=== PATIENT | male | born 1975 ===

== ENCOUNTER 2021-03-20 14:31 | Emergency (ER) | payer MEDICAID ==
[2021-03-20 15:20] LABS: ANION GAP 11.1 mEq/L (7-13)
[2021-03-20] MEDS ORDERED: GI Cocktail Oral Solution 30 ML PO ONE (15:52)
--- NOTE | 2021-03-20 16:06 | EDM.PDOC ---
ED HPI GENERAL MEDICAL PROBLEM - General Chief Complaint: Chest Pain Stated Complaint: CHEST PAIN Time Seen by Provider: 03/20/21 15:15 Source of Information: Reports: Patient History Limitations: Reports: No Limitations - History of Present Illness INITIAL COMMENTS - FREE TEXT/NARRATIVE: This 45 yo male patient was brought to the ED from [facility] due to lower chest pain and upper abdominal pain. The patient reports he tested positive for COVID on Tuesday. The patient was sent to the hospital for monoclonal antibodies. After his infusion, the patient started to develop increased symptoms. The patient reports he started to have COVID symptoms about 1 week ago and has continued to get worse. The patient reports his symptoms get worse when he lays down, but get better when he sits up or stands up. Onset: Today Duration: Constant Location: Reports: Chest, Abdomen Quality: Reports: Other Severity: Moderate Improves with: Reports: None Worsens with: Reports: None Context: Reports: Other Associated Symptoms: Reports: Chest Pain, Other Chest Pain Score (Numeric/FACES): 5 - Related Data Allergies Allergy/AdvReac Type Severity Reaction Status Date / Time Penicillins Allergy Other Verified 03/20/21 14:41 Home Meds: Home Meds Allopurinol [Zyloprim] 300 mg PO DAILY 03/20/21 [History] Codeine/Promethazine [Phenergan with Codeine] 5 ml PO QID 03/20/21 [History] FLUoxetine [PROzac] 40 mg PO DAILY 03/20/21 [History] hydrOXYzine HCL [hydrOXYzine] 25 mg PO TID PRN 03/20/21 [History] Past Medical History HEENT History: Reports: Allergic Rhinitis Cardiovascular History: Reports: High Cholesterol, Hypertension, Other (See Below) Other Cardiovascular History: bradycardia Respiratory History: Reports: Sleep Apnea Gastrointestinal History: Reports: Hemorrhoids Genitourinary History: Reports: Renal Calculus, Other (See Below) Other Genitourinary History: BULBOUS URETHRAL STRICTURE. ERECTILE DYSFUNCTION OF ORGANIC ORIGIN Musculoskeletal History: Reports: Arthritis, Gout Neurological History: Reports: None Psychiatric History: Reports: Anxiety, Depression Endocrine/Metabolic History: Reports: Obesity/BMI 30+ Hematologic History: Reports: None Immunologic History: Reports: None Oncologic (Cancer) History: Reports: None Dermatologic History: Reports: Cellulitis - Infectious Disease History Infectious Disease History: Reports: Chicken Pox, Novel Coronavirus - Past Surgical History Head Surgeries/Procedures: Reports: None HEENT Surgical History: Reports: None Respiratory Surgical History: Reports: None GI Surgical History: Reports: Hernia Repair/Other Male Surgical History: Reports: Other (See Below) Other Male Surgeries/Procedures: URETHRA SURGERY Endocrine Surgical History: Reports: None Neurological Surgical History: Reports: None Musculoskeletal Surgical History: Reports: None Oncologic Surgical History: Reports: None Dermatological Surgical History: Reports: None Social & Family History - Tobacco Use Tobacco Use Status *Q: Never Tobacco User Second Hand Smoke Exposure: No - Caffeine Use Caffeine Use: Reports: Energy Drinks, Soda Caffeine Use Comment: 1 can daily - Recreational Drug Use Recreational Drug Use: No ED ROS GENERAL - Review of Systems Review Of Systems: Comprehensive ROS is negative, except as noted in HPI. ED EXAM, GENERAL - Physical Exam Exam: See Below Exam Limited By: No Limitations General Appearance: Alert, WD/WN, Moderate Distress, Obese Eye Exam: Bilateral Eye: EOMI, Normal Inspection, PERRL Ears: Normal External Exam, Normal Canal, Hearing Grossly Normal, Normal TMs Nose: Normal Inspection, Normal Mucosa, No Blood Throat/Mouth: Normal Inspection, Normal Lips, Normal Teeth, Normal Gums, Normal Oropharynx, Normal Voice, No Airway Compromise Head: Atraumatic, Normocephalic Neck: Normal Inspection, Supple, Non-Tender, Full Range of Motion Respiratory/Chest: No Respiratory Distress, No Accessory Muscle Use, Decreased Breath Sounds Cardiovascular: Normal Peripheral Pulses, Regular Rate, Rhythm, No Edema, No Gallop, No JVD, No Murmur, No Rub (Male) Exam: Deferred Rectal (Males) Exam: Deferred Extremities: Normal Inspection, Normal Range of Motion, Non-Tender, Normal Capillary Refill, No Pedal Edema Neurological: Alert, Oriented, CN II-XII Intact, Normal Cognition, Normal Gait, Normal Reflexes, No Motor/Sensory Deficits Psychiatric: Normal Affect, Normal Mood Skin Exam: Warm, Dry, Intact, Normal Color, No Rash Lymphatic: No Adenopathy #1 Interpretation EKG Date: 03/20/21 Time: 14:37 Rhythm: NSR Rate (Beats/Min): 86 [place]: Normal P-Wave: Present QRS: Normal ST-T: Normal QT: Normal Comparison: NA - No Prior EKG Course - Vital Signs Last Recorded V/S: Last Vital Signs Temp 101.6 F H 03/20/21 14:41 Pulse 82 03/20/21 14:41 Resp 27 H 03/20/21 14:41 BP 144/72 H 03/20/21 14:41 Pulse Ox 93 L 03/20/21 14:41 - Orders/Labs/Meds Labs: Laboratory Tests 03/20/21 03/20/21 Range/Units 14:47 14:47 WBC 3.7 L (5.0-10.0) 10^3/uL RBC 4.35 L (4.6-6.2) 10^6/uL Hgb 13.1 L (14.0-18.0) g/dL Hct 40.0 (40.0-54.0) % MCV 92.0 (80-100) fL MCH 30.1 (27.0-34.0) pg MCHC 32.8 L (33.0-35.0) g/dL Plt Count 167 (150-450) 10^3/uL Neut % (Auto) 51.8 (42.2-75.2) % Lymph % (Auto) 36.9 (20.5-50.1) % [place] % (Auto) 11.0 H (2-8) % Eos % (Auto) 0.0 L (1.0-3.0) % Baso % (Auto) 0.3 (0.0-1.0) % Sodium 135 L (136-145) mmol/L Potassium 4.1 (3.5-5.1) mmol/L Chloride 101 (98-107) mmol/L Carbon Dioxide 27 (21-32) mmol/L Anion Gap 11.1 (7-13) mEq/L BUN 17 (7-18) mg/dL Creatinine 1.33 H (0.70-1.30) mg/dL Est Cr Clr Drug Dosing 83.26 mL/min Estimated GFR (MDRD) 59 BUN/Creatinine Ratio 12.8 (No establ ref range) Glucose 98 (70-99) mg/dL Calcium 7.9 L (8.5-10.1) mg/dL Total Bilirubin 0.4 (0.2-1.0) mg/dL AST 38 H (15-37) U/L ALT 41 (16-63) U/L Alkaline Phosphatase 43 L (46-116) U/L Troponin I High Sens 11 (<=76) pg/mL Total Protein 6.8 (6.4-8.2) g/dL Albumin 2.9 L (3.4-5.0) g/dL Globulin 3.9 Albumin/Globulin Ratio 0.74 Meds: Medications Discontinued Medications Generic Name Dose Route Start Last Admin Trade Name Dawitq PRN Reason Stop Dose Admin Al Hydroxide/Mg Hydroxide 30 ml 03/20/21 15:52 03/20/21 16:29 Gi Cocktail Oral Solution 30 Ml PO 03/20/21 15:53 30 ml ONETIME ONE Administration - Re-Assessments/Exams Free Text/Narrative Re-Assessment/Exam: 03/20/21 16:53 The patient reports some symptom relief after the GI Cocktail. Departure - Departure Time of Disposition: 16:54 Disposition: Home, Self-Care 01 Condition: Fair Clinical Impression: COVID GERD (gastroesophageal reflux disease) Qualifiers: Esophagitis presence: esophagitis presence not specified Qualified Code(s): K21.9 - Gastro-esophageal reflux disease without esophagitis Forms: ED Department Discharge Care Plan Goals: The patient was advised of the examination, lab and EKG results during the visit. The patient was given a GI Cocktail while in the ED. The patient was di scharged with a script for Omeprazole (20 mg) #30 to take 1 by mouth 20 minutes prior to eating daily. If the patient has any additional symptoms or concerns, the patient should either return to the emergency department or visit his primary care facility. Sepsis Event Note (ED) - Evaluation Sepsis Screening Result: No Definite Risk - Focused Exam Vital Signs: Vital Signs Temp Pulse Resp BP Pulse Ox 03/20/21 14:41 101.6 F H 82 27 H 144/72 H 93 L
== END 2021-03-20 18:25 | disposition home or self-care (01) ==
LOC: DL.ED 14:31
DX: U07.1 COVID-19 (principal); K21.9 Gastro-esophageal reflux disease without esophagitis; E78.00 Pure hypercholesterolemia, unspecified; I10 Essential (primary) hypertension; E66.9 Obesity, unspecified; Z68.43 Body mass index [BMI] 50.0-59.9, adult; Z79.899 Other long term (current) drug therapy
CPT/HCPCS: 36415; 80053; 84484; 85025; 93005; 99285-25; A9270-GY

== ENCOUNTER 2023-04-19 07:37 | Day surgery (SDC) | payer MEDICAID ==
[~2023-04-19 07:37] MED LIST: Dextrose 5%-0.45% NaCl 1,000 ML IV SCH
[2023-04-19] MEDS ORDERED: fentaNYL 100 MCG/2 ML SDV ONE (08:10)
[2023-04-19] MEDS ORDERED: fentaNYL 100 MCG/2 ML SDV IV ONE ×3 (08:10→08:13)
[2023-04-19] MEDS ORDERED: Midazolam 1 MG/ML 2 ML SDV ONE (08:10)
[2023-04-19] MEDS ORDERED: Midazolam 1 MG/ML 2 ML SDV IV ONE ×3 (08:10→08:14)
== END 2023-04-19 10:15 | disposition home or self-care (01) ==
LOC: DL.ENDO 07:37
PROVIDERS: ATTEND Internal Medicine Gastroenterology
DX: K31.7 Polyp of stomach and duodenum (principal); I10 Essential (primary) hypertension; E78.5 Hyperlipidemia, unspecified; E66.01 Morbid (severe) obesity due to excess calories; Z68.42 Body mass index [BMI] 45.0-49.9, adult
CPT/HCPCS: 87077; J2250; J3010; J7042